=== PATIENT | female | born 1995 | race Caucasian/White ===

== ENCOUNTER 2016-10-15 10:43 | Emergency (ER) | payer OTHER ==
[2016-10-15 11:03] VITALS: BP 128/80
--- NOTE | 2016-10-15 11:20 | UC ---
Throat Pain/Nasal Matt HPI - HPI Summary HPI Summary: 21 y/o female presents to the urgent care c/o sore throat w/ difficulty swallowing since last Wednesday. Pt reports states she went to ED on Wednesday and had throat culture done and she didn't received a call back w/ any results. She still having sore throat with white patches, pain 70/10 associated with multiples episodes of diarrhea, DIETZ, mild cough since then. Pt states diarrhea is watery w/o any abdominal pain. Pt denies fever, SOB, chest pain, N/V , urinary symptoms. - History of Current Complaint Chief Complaint: UCGeneralIllness Stated Complaint: SORE THROAT Time Seen by Provider: 10/15/16 10:58 Hx Obtained From: Patient Hx Last Menstrual Period: 09/16/16 ?: No Onset/Duration: Gradual Onset, Lasting Days, Still Present Severity: Moderate Pain Intensity: 7 Pain Scale Used: 0-10 Numeric Cough: Nonproductive Associated Signs & Symptoms: Positive: Dysphagia, Other - diarrhea. Negative: Sinus Discomfort, Nasal Discharge, Fever, Vomiting - Allergies/Home Medications Allergies/Adverse Reactions: Allergies Allergy/AdvReac Type Severity Reaction Status Date / Time No Known Allergies Allergy Verified 10/15/16 10:55 Home Medications: Home Medications Vitamin [Calna] 1 tab PO QPM 10/15/16 [History Confirmed 10/15/16] PMH/Surg Hx/FS Hx/Imm Hx Previously Healthy: Yes Respiratory History: Asthma - Surgical History Surgical History: Yes Surgery Procedure, Year, and Place: SKIN GRAFTS. 2xCyst removal. - Family History Known Family History: Positive: Hypertension, Diabetes Family History: Ovarian, colon cancer - Social History Occupation: Unemployed Lives: With Family Alcohol Use: Occasionally Substance Use Type: None Smoking Status (MU): Never Smoked Tobacco - Immunization History Most Recent Influenza Vaccination: NONE 2015 Most Recent Tetanus Shot: 2014 Most Recent Pneumonia Vaccination: N/A Review of Systems Constitutional: Negative Skin: Negative Eyes: Negative ENT: Sore Throat Respiratory: Cough - mild Cardiovascular: Negative Gastrointestinal: Diarrhea - several episodes of watery diarrhea w/o any abdominal pain Motor: Negative Neurovascular: Negative Musculoskeletal: Negative Neurological: Negative Psychological: Negative All Other Systems Reviewed And Are Negative: Yes Physical Exam Triage Information Reviewed: Yes Appearance: Well-Appearing, No Pain Distress, Well-Nourished, Obese Vital Signs: Initial Vital Signs Temp 97.4 F 10/15/16 10:56 Pulse 89 10/15/16 10:56 Resp 18 10/15/16 10:56 BP 128/80 10/15/16 10:56 Pulse Ox 97 10/15/16 10:56 Vital Signs Reviewed: Yes Eye Exam: Normal Eyes: Positive: Conjunctiva Clear - PERRLA, EOMI, fundi grossly normal ENT: Positive: Normal ENT inspection, Pharyngeal erythema - erythematous and moderate exudate, TMs normal, Tonsillar swelling, Tonsillar exudate. Negative: Nasal congestion, Nasal drainage Dental Exam: Normal Neck exam: Normal Neck: Positive: Enlarged Nodes @ - anterior cervical tender and sowllen Respiratory Exam: Normal Respiratory: Positive: Chest non-tender, Lungs clear, Normal breath sounds Cardiovascular Exam: Normal Cardiovascular: Positive: RRR, No Murmur, Pulses Normal Abdominal Exam: Normal Abdomen Description: Positive: Nontender, No Organomegaly, Soft. Negative: CVA Tenderness (R), CVA Tenderness (L) Bowel Sounds: Positive: Present Musculoskeletal Exam: Normal Musculoskeletal: Positive: Strength Intact, ROM Intact, No Edema Neurological Exam: Normal Neurological: Positive: Alert Psychological Exam: Normal Skin Exam: Normal Throat Pain/Nasal Course/Dx - Course Course Of Treatment: 21 y/o female presents to the urgent care c/o sore throat w / difficulty swallowing since last Wednesday. Pt reports states she went to ED on Wednesday and had throat culture done and she didn't received a call back w/ any results. She still having sore throat with white patches, pain 70/10 associated with multiples episodes of diarrhea, DIETZ, mild cough since then. Pt states diarrhea is watery w/o any abdominal pain. Pt denies fever, SOB, chest pain, N/V , urinary symptoms. PE abnormal findings:ENT: Positive: Normal ENT inspection, Pharyngeal erythema - erythematous and moderate exudate, TMs normal , Tonsillar swelling, Tonsillar exudate. Negative: Nasal congestion, Nasal drainage. Rapid strep ordered. Result: negative Most likely viral phryngitis. Acute Diarrhea: Pt with multiple episodes of watery diarrhea w/o any abdominal pain, N/V which started after pharyngitis sympt. Most likely viral diarrhea. Pt given referral for ENT with DR Calero on 10/26/2016 since she wants an ENT close to her and w/ Hx of multiple tonsilitis and ear infections. Advised to increase fluid intake, avoid strenuous exercise, rest, eat soft and if symptoms worsen to please return or f/u with her PCP. Pt understooda nad agreed. - Differential Dx/Diagnosis Differential Diagnosis/HQI/PQRI: Mononucleosis, Otitis Media, Peritonsillar Abscess, Pharyngitis, Tonsillitis, URI Provider Diagnoses: Viral pharyngitis, acute diarrhea Discharge - Discharge Plan Condition: Stable Disposition: HOME Prescriptions: Ibuprofen TAB* [Motrin TAB* 800 MG] 800 mg PO Q6H #20 tab Patient Education Materials: Pharyngitis (ED), Acute Diarrhea (ED) Referrals: [facility] [place]] Jesus Manuel Polanco MD [Medical Doctor] - 10/26/16 (Pt with HX of multiple B/L ear infection and tonsillitis) Additional Instructions: Please take medications as instructed after meals, avoid strenuous exercise, increase fluid intake with pedialyte OTC or gatorade, eat soft meals and rest. If you do not improve or if symptoms worsenplease follow up with your PCP or return to the urgent care for further evaluation and treatment.
== END 2016-10-15 11:41 | disposition home or self-care (01) ==
LOC: UCCORT 10:43
DX: J02.8 Acute pharyngitis due to other specified organisms (principal); R19.7 Diarrhea, unspecified; J45.909 Unspecified asthma, uncomplicated; E66.9 Obesity, unspecified
CPT/HCPCS: 87651; 99212; G0463